=== PATIENT | male | born 2000 | race African-American/Black ===

== ENCOUNTER 2021-09-23 17:07 | Emergency (ER) | payer OTHER ==
[~2021-09-23] VITALS: Ht 188 cm; Wt 108.9 kg
[2021-09-23 17:15] VITALS: BP 121/57; TEMP 98.5
== END 2021-09-23 18:42 | disposition home or self-care (01) ==
LOC: ED 17:07
PROC: 0HQMXZZ Repair Right Foot Skin, External Approach (ICD-10-PCS; principal; 2021-09-23)
DX: S91.311A Laceration without foreign body, right foot, initial encounter (principal); S91.332A Puncture wound without foreign body, left foot, initial encounter; W45.0XXA Nail entering through skin, initial encounter; W25.XXXA Contact with sharp glass, initial encounter; Y92.89 Other specified places as the place of occurrence of the external cause
CPT/HCPCS: 90471; 90715; 99283